=== PATIENT | male | born 1965 ===

== ENCOUNTER 2021-07-19 08:33 | Inpatient (IN) | payer OTHER ==
[~2021-07-19] VITALS: Ht 188 cm; Wt 140.6 kg
[~2021-07-19 08:33] MED LIST: ALDACTONE25 MG PO; AMBIEN5 MG PO; CLONAZEPAM2 MG PO; COZAAR50 MG PO; GLUCOTROL10 MG PO
[2021-08-19] MEDS ORDERED: METRONIDAZOLE500 MG PO (13:27)
[2021-08-19] MEDS ORDERED: LEVOFLOXACIN500 MG PO (13:28)
== END 2021-08-19 16:51 | disposition home or self-care (01) | DRG 330 ==
LOC: O/R 07-22 06:11 → SURH 07-22 06:11 → ICU 07-25 11:30 → SURH 07-27 18:39 → MEDJ 07-29 16:13
PROVIDERS: ADMIT Surgery; ATTEND Surgery
PROC: 07TC4ZZ Resection of Pelvis Lymphatic, Percutaneous Endoscopic Approach (ICD-10-PCS; 2021-07-22)
PROC: 4A12X4Z Monitoring of Cardiac Electrical Activity, External Approach (ICD-10-PCS; 2021-07-22)
PROC: 0DTE4ZZ Resection of Large Intestine, Percutaneous Endoscopic Approach (ICD-10-PCS; principal; 2021-07-22 10:30)
PROC: 3E0F7GC Introduction of Other Therapeutic Substance into Respiratory Tract, Via Natural or Artificial Opening (ICD-10-PCS; 2021-07-24)
PROC: 4A033R1 Measurement of Arterial Saturation, Peripheral, Percutaneous Approach (ICD-10-PCS; 2021-07-24)
PROC: BW25Y0Z Computerized Tomography (CT Scan) of Chest, Abdomen and Pelvis using Other Contrast, Unenhanced and Enhanced (ICD-10-PCS; 2021-07-25)
PROC: 8E0ZXY6 Isolation (ICD-10-PCS; 2021-07-29)
PROC: BW21Y0Z Computerized Tomography (CT Scan) of Abdomen and Pelvis using Other Contrast, Unenhanced and Enhanced (ICD-10-PCS; 2021-08-08)
PROC: 0W9F30Z Drainage of Abdominal Wall with Drainage Device, Percutaneous Approach (ICD-10-PCS; 2021-08-10)
PROC: BW21Y0Z Computerized Tomography (CT Scan) of Abdomen and Pelvis using Other Contrast, Unenhanced and Enhanced (ICD-10-PCS; 2021-08-15)
DX: C18.6 Malignant neoplasm of descending colon (principal); J95.89 Other postprocedural complications and disorders of respiratory system, not elsewhere classified; J95.4 Chemical pneumonitis due to anesthesia; K68.11 Postprocedural retroperitoneal abscess; Z20.822 Contact with and (suspected) exposure to COVID-19; R50.82 Postprocedural fever; I11.9 Hypertensive heart disease without heart failure; E66.01 Morbid (severe) obesity due to excess calories; B95.7 Other staphylococcus as the cause of diseases classified elsewhere; E11.9 Type 2 diabetes mellitus without complications; J44.9 Chronic obstructive pulmonary disease, unspecified